=== PATIENT | male | born 1990 | race Hispanic/Latino ===

== ENCOUNTER 2017-12-27 15:56 | Emergency (ER) | payer SELFPAY ==
[~2017-12-27] VITALS: Ht 167.6 cm; Wt 68.0 kg
[2017-12-27 17:59] VITALS: BP 130/80
[2017-12-27] MEDS ORDERED: FIORICET PO (17:59)
== END 2017-12-27 18:15 | disposition home or self-care (01) | DRG 103 ==
LOC: ED 15:56 → EDSEX 16:20 → ED 16:20
DX: R51 Headache (principal)